=== PATIENT | male | born 1995 | race Caucasian/White ===

== ENCOUNTER 2018-04-17 00:19 | Emergency (ER) | payer SELFPAY ==
[2018-04-17] MEDS ORDERED: Amoxicillin 500 MG Cap PO ONE (00:53)
--- NOTE | 2018-04-17 01:01 | EDM.PDOC ---
ED HPI GENERAL MEDICAL PROBLEM - General Chief Complaint: ENT Problem Stated Complaint: EAR PROBLEMS [id number] Time Seen by Provider: 04/17/18 00:45 Source of Information: Reports: Patient History Limitations: Reports: No Limitations - History of Present Illness INITIAL COMMENTS - FREE TEXT/NARRATIVE: This 23 yo male patient reports to the ED with left ear pain. The patient reports his left ear has been "plugged" for the past 2 weeks, but he started to have sharp pains in his left ear about 2 hours prior to reporting to the ED. The patient reports that he did have an appointment in the clinic for his ear, but he cancelled his appointment due to work. The patient reports he has been using over the counter drops in his ear with no changes in symptoms. Onset: Today Duration: Hour(s): (2), Intermittent Location: Reports: Head (left ear) Quality: Reports: Ache, Sharp Severity: Moderate Improves with: Reports: None Worsens with: Reports: None Associated Symptoms: Reports: No Other Symptoms Left Ear Pain Score (Numeric/FACES): 6 - Related Data Allergies Allergy/AdvReac Type Severity Reaction Status Date / Time No Known Allergies Allergy Verified 04/17/18 00:29 Home Meds: Home Meds . [No Known Home Meds] 04/17/18 [History] Past Medical History - Past Surgical History HEENT Surgical History: Reports: Oral Surgery, Other (See Below) Other HEENT Surgeries/Procedures: Cleft palate repair Social & Family History - Tobacco Use Smoking Status *Q: Current Every Day Smoker Years of Tobacco use: 10 Packs/Tins Daily: 0.5 - Caffeine Use Caffeine Use: Reports: Soda - Recreational Drug Use Recreational Drug Use: No ED ROS ENT - Review of Systems Review Of Systems: ROS reveals no pertinent complaints other than HPI. ED EXAM, ENT - Physical Exam Exam: See Below Exam Limited By: No Limitations General Appearance: Alert, WD/WN, Mild Distress, Thin Eye Exam: Bilateral Eye: EOMI, Normal Inspection, PERRL Ears: TM Erythema (left ), Cerumen Impaction (bilaterally) Nose: Normal Inspection, Normal Mucousa, No Blood Mouth/Throat: Normal Inspection, Normal Gums, Normal Lips, Normal Oropharynx, Normal Teeth Head: Atraumatic, Normocephalic Neck: Normal Inspection, Supple, Non-Tender, Full Range of Motion Respiratory/Chest: No Respiratory Distress, Lungs Clear, Normal Breath Sounds, No Accessory Muscle Use, Chest Non-Tender Cardiovascular: Normal Peripheral Pulses, Regular Rate, Rhythm, No Edema, No Gallop, No JVD, No Murmur, No Rub GI/Abdominal: Normal Bowel Sounds, Soft, Non-Tender, No Organomegaly, No Distention, No Abnormal Bruit, No Mass (Male) Exam: Deferred Rectal (Males) Exam: Deferred Back: Normal Inspection, Full Range of Motion Extremities: Normal Inspection, Normal Range of Motion, Non-Tender, No Pedal Edema, Normal Capillary Refill Neurological: Alert, Oriented, CN II-XII Intact, Normal Cognition, Normal Gait, Normal Reflexes, No Motor/Sensory Deficits Psychiatric: Normal Affect, Normal Mood Skin: Warm, Dry, Intact, Normal Color, No Rash Lymphatic: No Adenopathy Course - Vital Signs Last Recorded V/S: Last Vital Signs Temp 37.1 C 04/17/18 00:24 Pulse 62 04/17/18 00:24 Resp 16 04/17/18 00:24 BP 121/51 L 04/17/18 00:24 Pulse Ox 100 04/17/18 00:24 - Orders/Labs/Meds Meds: Medications Discontinued Medications Generic Name Dose Route Start Last Admin Trade Name Freq PRN Reason Stop Dose Admin Amoxicillin 500 mg 04/17/18 00:53 Amoxil PO 04/17/18 00:54 ONETIME ONE Departure - Departure Time of Disposition: 00:58 Disposition: Home, Self-Care 01 Condition: Fair Clinical Impression: Left otitis media Qualifiers: Otitis media type: suppurative Chronicity: acute Recurrence: not specified as recurrent Spontaneous tympanic membrane rupture: without spontaneous rupture Qualified Code(s): H66.002 - Acute suppurative otitis media without spontaneous rupture of ear drum, left ear - Discharge Information *PRESCRIPTION DRUG MONITORING PROGRAM REVIEWED*: Not Applicable *COPY OF PRESCRIPTION DRUG MONITORING REPORT IN PATIENT SLOANE: Not Applicable Instructions: Otitis Media, Adult, [id number] Care Plan Goals: The patient was advised of the examination results during the visit. The patient was given an oral dose of Amoxicillin (500 mg) while in the ED. The patient was discharged with a script for Amoxicillin (500 mg) to take 1 by mouth 2 times per day for 7 days. The patient was encouraged to follow-up with his primary care facility for continued evaluation and further management. If the patient has any additional symptoms or concerns, the patient should visit his primary care facility or return to the emergency department.
== END 2018-04-17 01:06 | disposition home or self-care (01) ==
LOC: DL.ED 00:19
DX: H66.002 Acute suppurative otitis media without spontaneous rupture of ear drum, left ear (principal); F17.210 Nicotine dependence, cigarettes, uncomplicated
CPT/HCPCS: 99283; A9270

== ENCOUNTER 2024-07-14 20:46 | Emergency (ER) | payer SELFPAY | END 2024-07-14 23:47 | disposition home or self-care (01) | LOC: DL.ED 20:46 | DX: S02.2XXA Fracture of nasal bones, initial encounter for closed fracture (principal); Y04.2XXA Assault by strike against or bumped into by another person, initial encounter | CPT/HCPCS: 70486; 99283; 99284 ==